=== PATIENT | female | born 1960 | race Caucasian/White ===

== ENCOUNTER → 2016-04-21 | Outpatient (CLI) | payer OTHER ==
--- NOTE | 2016-04-21 14:08 | MAMMOGRAPHY REPORT ---
BILATERAL DIGITAL SCREENING MAMMOGRAM TOMOSYNTHESIS WITH CAD: 04/21/2016 CLINICAL HISTORY: Routine screening. Patient has no complaints. TECHNIQUE: Breast tomosynthesis in addition to standard 2D mammography was performed. Current study was also evaluated with a Computer Aided Detection (CAD) system. COMPARISON: No prior exams were available for comparison. BREAST COMPOSITION: There are scattered areas of fibroglandular density in both breasts. FINDINGS: No suspicious mass, architectural distortion or cluster of microcalcifications is seen. IMPRESSION: ACR BI-RADS CATEGORY 1: NEGATIVE There is no mammographic evidence of malignancy. A 1 year screening mammogram is recommended. The p atient will receive written notification of the results. Approximately 10% of breast cancers are not detected with mammography. A negative mammographic repor t should not delay biopsy if a clinically suggestive mass is present. Katelin blue/neha:04/21/2016 13:34:21 Circus Agent: Lizz NAVA)(Latrice), [facility] letter sent: Normal 1/2 BI-RADS Code: ACR BI-RADS Category 1: Negative
== END | disposition home or self-care (01) ==
LOC: C.MAMM 10:44
PROVIDERS: ATTEND Nurse Practitioner
DX: Z12.31 Encounter for screening mammogram for malignant neoplasm of breast (principal)

== ENCOUNTER 2016-05-14 16:42 | Emergency (ER) | payer OTHER ==
[~2016-05-14] VITALS: Ht 167.6 cm; Wt 119.2 kg
[2016-05-14 16:56] VITALS: TEMP 36.8; Ht 167.6 cm; Wt 119.2 kg
[2016-05-14] MEDS ORDERED: KETOROLAC TROMETHAMINE 60 MG/2 ML VIAL IM STA (17:09)
--- NOTE | 2016-05-14 17:30 | EMERGENCY ROOM VISIT NOTE ---
ED Visit Note First contact with patient: 17:01 CHIEF COMPLAINT: knee pain HISTORY OF PRESENT ILLNESS: This 55-year-old female patient presents to the emergency department ambulatory complaining of pain in the right knee. The patient reports that she has had pain and swelling in the right knee for the past 2 weeks. She reports that last weekend, she developed an achy pain in the right knee with associated swelling. She states that the swelling was located in the back of the knee. She reports the swelling has decreased over the past 2 weeks, but she has continued achy pain. She reports the discomfort a 10/10. She has been applying ice at home with no relief. She called her primary care provider today and they were not able to get her an appointment and recommended that she come here. She denies any specific injury to the knee. She denies any previous knee problems. She denies history of blood clots. She is not a smoker and does not take any permanent replacement therapy. She denies any recent long car rides. She denies any numbness or weakness of the right lower extremity. REVIEW OF SYSTEMS: A 6 system review of systems was completed with positives and pertinent negatives listed in the HPI. ALLERGIES: Vicodin, Percocet, tramadol, propoxyphene MEDICATIONS: No chronic medications PMH: No significant past medical history. SOCIAL HISTORY: The patient lives locally with family. Nonsmoker. PHYSICAL EXAM: Vital Signs: Reviewed Nurse's notes, vital signs stable. GENERAL : This is a 55-year-old female, no acute distress, but appears in pain, well- developed, well-nourished. MENTAL STATUS: Alert, oriented to person place and time, and cooperative. MUSCULOSKELETAL: The right knee does not appear to be significantly swollen, but difficult to assess secondary to patient's body habitus. There is no erythema or warmth. There is tenderness diffusely over the knee and popliteal region. Full range of motion of the knee. The foot and toes are warm and well-perfused. Dorsalis pedis pulse 2+. Sensation to pain and light touch is intact. Capillary refill less than 2 seconds. RADIOGRAPHIC FINDINGS: RIGHT KNEE 3 VIEWS DISCUSSION: Mild degenerative change patellofemoral joint compartment and medial joint compartment. Mild reactive osteophytic change lateral femoral femoral condyle. No significant soft tissue edema. Suprapatellar bursal loose body measuring 1.2 cm at maximum. IMPRESSION: Moderate degenerative change. No acute bony abnormality. Loose body within the suprapatellar bursa. Venous Doppler right leg RIGHT VENOUS DOPP LOWER EXT UNILAT FINDINGS: Normal study IMPRESSION: Normal study EMERGENCY DEPARTMENT COURSE: I examined the patient. X-rays of the right knee were reviewed by myself and read by radiology and reveal no acute bony abnormalities, but did show a loose body within the suprapatellar bursa. I am unsure of the significance of this finding and did recommend that the patient follow up with orthopedics regarding this. An ultrasound of the lower extremities was performed and was negative for any findings. The patient was placed in an Cody wrap and given a walker. She does have significant pain, but unfortunately has allergies to oral narcotics as well as tramadol. The patient was instructed to continue ibuprofen and Tylenol as needed for pain. She was given information for orthopedic follow-up. She will return for any worsening pain. She verbalized understanding of my assessment and treatment plan. The patient was discharged home in good condition. DIAGNOSIS: Right knee pain Current/Historical Medications No Active Prescriptions or Reported Meds Allergies Coded Allergies: Acetaminophen (Unverified Allergy, Severe, HIVES, 05/14/16) Oxycodone (Unverified Allergy, Severe, HIVES, 05/14/16) Propoxyphene (Unverified Allergy, Severe, HIVES, 05/14/16) Tramadol (Unverified Allergy, Severe, HIVES, 05/14/16) Hydrocodone (Unverified Allergy, Unknown, HALLUCINATION, 05/14/16) Vital Signs Date Time Temp Pulse Resp B/P Pulse Ox O2 Delivery O2 Flow Rate FiO2 05/14/16 18:18 72 18 172/106 99 Room Air 05/14/16 16:56 36.8 78 18 203/116 100 Room Air Medications Administered Medications (Trade) Dose Ordered Sig/Brigitte Route Start Time Stop Time Status Last Admin Dose Admin Ketorolac Tromethamine (Toradol Inj) 60 mg NOW STAT IM 05/14/16 17:09 05/14/16 17:11 DC 05/14/16 17:15 60 MG Departure Information Dispostion Home / Self-Care Condition GOOD Prescriptions No Active Prescriptions or Reported Meds Referrals Juanis Albert, C.R.N.P (PCP) Marks, Oracio, M.D. Patient Instructions My [facility] Additional Instructions You have been treated in the Emergency Department for Knee Pain. For pain control, you can use the following [id number] medicines (if >12 yo): - Regular strength (325mg/tab) Tylenol (acetaminophen) 2 tabs every 4-6 hours as needed. Do not exceed 12 tablets in a 24 hour period. Avoid taking more than 4 grams (4000 mg) of Tylenol per day. This includes any other sources of acetaminophen you may take on a regular basis. - Regular strength (200 mg/tab) Advil (ibuprofen) 1-2 tabs every 4-6 hours as needed. Do not exceed a dose of 3200 mg per day. If this is a recent injury (<24 hrs), ice can be applied to the area of pain for the first 3 days to help decrease pain and inflammation. Ice massages can be performed by freezing water in a paper cup, peeling back the cup to expose the ice and then massaging over the affected area. You have been provided the number for an Orthopaedic Surgeon. You should call this number as soon as possible to establish a follow-up visit from today's Emergency Department visit. Wear the Cody wrap and use the walker as needed until follow-up with orthopedics. Return to the Emergency Department if your current symptoms worsen despite treatment course outlined above.
--- NOTE | 2016-05-14 17:33 | DIAGNOSTIC IMAGING REPORT ---
RIGHT KNEE 3 VIEWS CLINICAL HISTORY: right knee pain, no injury Right pain COMPARISON: None. DISCUSSION: Mild degenerative change patellofemoral joint compartment and medial joint compartment. Mild reactive osteophytic change lateral femoral femoral condyle. No significant soft tissue edema. Suprapatellar bursal loose body measuring 1.2 cm at maximum. IMPRESSION: Moderate degenerative change. No acute bony abnormality. Loose body within the suprapatellar bursa. Electronically signed by: Arpan Davison M.D. 05/14/2016 5:32 PM Dictated Date/Time: 05/14/2016 5:31 PM
--- NOTE | 2016-05-14 17:59 | DIAGNOSTIC IMAGING REPORT ---
Venous Doppler right leg RIGHT VENOUS DOPP LOWER EXT UNILAT CLINICAL HISTORY: right knee pain, no injury Right pain. Edema. TECHNIQUE: Venous Doppler COMPARISON STUDY: None FINDINGS: Normal study IMPRESSION: Normal study Electronically signed by: Arpan Davison M.D. 05/14/2016 5:58 PM Dictated Date/Time: 05/14/2016 5:57 PM
[2016-05-14 18:18] VITALS: BP 172/106; PULSE 72; O2SAT 99
== END 2016-05-14 18:23 | disposition home or self-care (01) ==
LOC: C.EDB 16:43 → C.EDD 18:23
DX: M25.561 Pain in right knee (principal)

== ENCOUNTER → 2016-05-27 | Outpatient (CLI) | payer OTHER ==
--- NOTE | 2016-05-27 11:06 | DIAGNOSTIC IMAGING REPORT ---
MRI right knee RIGHT LOWER EXT JOINT WITHOUT CLINICAL HISTORY: R KNEE PAIN Right pain TECHNIQUE: Multi axial MRI acquisition COMPARISON STUDY: None FINDINGS: Moderate generalized degenerative change of all major joint compartments. Moderate chondromalacia patella with thinning and loss of articular services primarily laterally. Loose body at the patellofemoral joint measuring 9 x 7 mm. Small joint effusion. The patellar retinaculum are intact. Medial and lateral joint compartments show mild generalized degenerative change. Collateral structures are intact. Cruciate ligaments appear intact. There is edematous change of the anterior cruciate ligament. Moderate degenerative changes of the articular services the medial and lateral femoral condyles are noted. Evaluation of the menisci demonstrate a mild degree of degenerative meniscal surface fibrillation both medially as well as laterally. A well-defined major meniscal tear is not felt to be present. IMPRESSION: 1. 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 2. 9 x 7 mm loose body at the patellofemoral joint space 3. Moderate edema anterior cruciate ligament. 4. No major ligamentous and tendinous or muscular disruption. 5. Moderate degenerative change of all major articular services throughout. Electronically signed by: Arpan Davison M.D. 05/27/2016 11:04 AM Dictated Date/Time: 05/27/2016 10:48 AM
== END | disposition home or self-care (01) ==
LOC: C.MRI 09:26
PROVIDERS: ATTEND Orthopaedic Surgery Adult Reconstructive Orthopaedic Surgery
DX: M25.561 Pain in right knee (principal); M17.11 Unilateral primary osteoarthritis, right knee; M22.41 Chondromalacia patellae, right knee; M23.41 Loose body in knee, right knee; R60.0 Localized edema

== ENCOUNTER → 2016-06-28 | Outpatient (CLI) | payer OTHER ==
--- NOTE | 2016-06-28 16:12 | DIAGNOSTIC IMAGING REPORT ---
CHEST 2 VIEWS ROUTINE CLINICAL HISTORY: Preoperative evaluation. COMPARISON STUDY: No previous studies for comparison. FINDINGS: Lung volumes are normal. Lungs are clear. There is no pneumothorax or pleural effusion. Cardiac size is normal. Mediastinal contours are normal. There are cholecystectomy clips. IMPRESSION: No acute cardiopulmonary findings. Electronically signed by: Tai Ryo M.D. 06/28/2016 4:10 PM Dictated Date/Time: 06/28/2016 4:10 PM
[2016-06-28 17:31] LABS: BLOOD UREA NITROGEN 15 mg/dl (7-18); BUN/CREATININE RATIO 15.8 (10-20); CALCIUM 9.5 mg/dl (8.5-10.1); CARBON DIOXIDE 28 mmol/L (21-32); CHLORIDE 101 mmol/L (98-107); CHOLESTEROL 219 mg/dl (0-200); CREATININE 0.96 mg/dl (0.60-1.20); GLUCOSE 90 mg/dl (70-99); POTASSIUM 3.9 mmol/L (3.5-5.1); SODIUM 137 mmol/L (136-145)
[2016-06-28 17:35] LABS: CHOLESTEROL/HDL RATIO 3.5; HDL CHOLESTEROL 62 mg/dl; LDL CHOLESTEROL CALCULATED 134 mg/dl; TRIGLYCERIDES 114 mg/dl (0-150); VERY LOW DENSITY LIPOPROT CALC 23 mg/dl
== END | disposition home or self-care (01) ==
LOC: C.RADPV 15:54
PROVIDERS: ATTEND Family Medicine
DX: Z01.811 Encounter for preprocedural respiratory examination (principal); Z13.1 Encounter for screening for diabetes mellitus; Z13.220 Encounter for screening for lipoid disorders